=== PATIENT | male | born 2000 | race Caucasian/White ===

== ENCOUNTER 2020-05-13 15:10 | Outpatient (CLI) | payer OTHER ==
--- NOTE | 2020-05-13 15:24 | XRAY Report ---
PROCEDURE: Knee 3 View RT INDICATIONS: RIGHT KNEE JOINT PAIN TECHNIQUE: 3 views of the right knee(s) were acquired. COMPARISON: None. FINDINGS: Bones: No fractures or dislocations. No suspicious bony lesions. Soft tissues: There is a mild joint effusion. No suspicious soft tissue calcifications. IMPRESSION: No significant plain film abnormality is seen. If there is strong clinical concern for internal derangement of the knee, please consider a dedicated , scheduled knee MRI for further evaluation (assuming that there is no contraindication). Reviewed by: Vahe Scott MD on 05/13/2020 2:23 PM [facility] Approved by: Vahe Scott MD on 05/13/2020 2:23 PM [facility] Station ID: [id number]
== END 2020-05-13 23:59 | disposition home or self-care (01) ==
LOC: DI.S 15:10
PROVIDERS: ATTEND Physician Assistant Medical
DX: M25.561 Pain in right knee (principal)